=== PATIENT | male | born 1980 | race Caucasian/White ===

== ENCOUNTER 2017-07-13 09:13 | Emergency (ER) | payer OTHER ==
[~2017-07-13] VITALS: Ht 182.9 cm; Wt 104.3 kg
[2017-07-13 09:50] LABS: ABSOLUTE EOSINOPHILS 0.2 thou/uL (0.0-0.7); ABSOLUTE LYMPHOCYTES 2.2 thou/uL (0.8-5.3); ABSOLUTE MONOCYTES 0.6 thou/uL (0.0-1.2); ABSOLUTE NEUTROPHILS 3.8 thou/uL (1.6-8.1); BASOPHILS 0.5 %; EOSINOPHILS 3.3 %; HEMATOCRIT 43.8 % (42.0-52.0); HEMOGLOBIN 14.9 gm/dL (14.0-18.0); LYMPHOCYTES 32.5 %; MCH 29.6 pg (26.0-34.0); MCHC 34.1 g/dL (28.0-37.0); MONOCYTES 8.8 %; MPV 7.3 fl. (7.2-11.1); NUCLEATED RBCS 0 /100WBC; PLATELET COUNT* 274 thou/uL (150-400); POLYS 54.9 %; RBC 5.03 mil/uL (4.50-6.00); WBC 6.9 thou/uL (4.0-11.0)
[2017-07-13 10:08] LABS: ALKALINE PHOSPHATASE 90 U/L (46-116); CHLORIDE 102 mmol/L (98-107); POTASSIUM 3.8 mmol/L (3.5-5.1); SGPT 34 U/L (30-65); SODIUM 138 mmol/L (136-145); TOTAL BILIRUBIN 0.5 mg/dL (<0.1-1.0); TROPONIN-I LEVEL <0.06 ng/mL (<0.06)
[2017-07-13 10:13] LABS: URINE BILIRUBIN NEGATIVE (Negative); URINE BLOOD NEGATIVE (Negative); URINE CLARITY CLEAR; URINE COLOR STRAW; URINE GLUCOSE-RANDOM NEGATIVE (Negative); URINE KETONES NEGATIVE (Negative); URINE LEUKOCYTES-REFLEX NEGATIVE (Negative); URINE NITRITE-REFLEX NEGATIVE (Negative); URINE PROTEIN NEGATIVE (Negative); URINE SPECIFIC GRAVITY <= 1.005 (1.005-1.030); URINE UROBILINOGEN 0.2 E.U./dl (0.2-1.0)
[2017-07-13 10:22] LABS: AMP/METHAMP Negative (Negative); BARBITURATES Negative (Negative); BENZODIAZEPINES Negative (Negative); COCAINE Negative (Negative); METHADONE Negative (Negative); OPIATES Negative (Negative); PCP Negative (Negative); THC Negative (Negative)
[2017-07-13 10:29] LABS: ANION GAP 11 mmol/L (7-16); BUN 14 mg/dL (7-18); CO2 25 mmol/L (21-32); GLUCOSE 123 mg/dL (70-99)
[2017-07-13 10:44] LABS: ALBUMIN 4.1 g/dL (3.4-5.0); LIPASE 117 U/L (73-393); NT-PRO BRAIN NAT PEPTIDE 22 pg/mL (<300); SGOT 23 U/L (15-37); TOTAL PROTEIN 7.6 g/dL (6.4-8.2)
[2017-07-13] MEDS ORDERED: ATIVAN0.5 MG PO (11:32)
[2017-07-13 11:42] VITALS: BP 150/85
--- NOTE | 2017-07-13 15:28 | EKG ---
[place] [address] ELECTROCARDIOGRAM REPORT Name: THOMAS MEADE Room: [facility] Ailyn#: [id number] Admission: 07/13/17 Attend Phys: Discharge: 07/13/17 Date of : 80 Report #: [id number] THIS REPORT FOR: //name// [facility] ED Test Date: 2017-07-13 Test Time: 09:48:49 Pat Name: THOMAS MEADE Department: Room: Gender: M Building [employer] Helper: JAZZY : 1980 Requested By: Keanu Zayas Order Number: [id number] MD: Terrence Turk Measurements Intervals [place] Rate: 75 P: 26 FL: 171 QRS: 69 QRSD: 101 T: 55 QT: 374 QTc: 418 Interpretive Statements Sinus rhythm Baseline wander in lead(s) V6 No previous ECG available for comparison Electronically Signed On 07-13-2017 15:27:59 CDT by Terrence Turk [email or web address] <ELECTRONICALLY SIGNED> By: Terrence Turk MD, [facility] 07/13/17 1527 0948 0948 Terrence Turk MD, FACC /EPI
== END 2017-07-13 11:43 | disposition home or self-care (01) ==
LOC: M.ERS 09:13
PROVIDERS: Emergency Medicine
DX: F41.9 Anxiety disorder, unspecified (principal); M62.82 Rhabdomyolysis